=== PATIENT | female | born 1995 | race Caucasian/White ===

== ENCOUNTER 2024-06-18 03:20 | Inpatient (IN) | payer OTHER, SELFPAY ==
[2024-06-18] VITALS (19 sets, daily range): BP systolic 102–207; BP diastolic 52–93; PULSE 58–99; TEMP 35.6–36.8
[2024-06-18] MEDS: LIDOCAINE HCL 1% 200 MG/20 ML MDV INJ (03:42)
[2024-06-18] MEDS: OXYTOCIN/0.9 % SODIUM CHLORIDE 20 UNITS/1,000 ML PLAST..BAG 999 UNIT IV (03:42)
--- NOTE | 2024-06-18 04:07 | PM.OBPRCVD ---
Procedure Intrapartal events: None Induction method: none Delivery monitor: external FHT and external uterine Route of delivery: Episiotomy Description: midline L&D Laceration Description: perineal - 2nd degree Delivery repair: Vicryl Estimated blood loss (mL): 300 Anesthesia type: None Disposition: floor Delivery date: 06/18/24 presentation: vertex Placental delivery description: Spontaneous cord description: 3 Vessels
[2024-06-18] MEDS: GLYCERIN/WITCH HAZEL PADS 1 PAD TOPICAL (04:18)
[2024-06-18] MEDS: BENZOCAINE/MENTHOL 85 GRAM SPRAY BOTTLE 1 APPLIC TOPICAL (04:18)
--- NOTE | 2024-06-18 05:00 | PC.NURSE ---
Mother arrives at 0320 from attempting a home that they became uncomfortable with because the baby wasn't coming. Reports she is post dates and has been in labor since TuesdayJune 16 at noon. They verbalize her due date was June 12. 's head is in wheelchair upon arrival to room 255 in [facility]. She reports her water broke at 0230 am today. They couldn't tell what it looked like because she was in a tub of water. Staff members assisting pt into bed are are Jaspreet Muñoz RN, Natalie Ivey RN, and Feliz Walker CRNA. Nursing baggage handling supervisor KEVIN Granados calls Dr Narvaez to notify him of the need to come [place]. Jaspreet Muñoz remains at pt's side supporting the perineum, Feliz MCCLELLAND places an 20 G IV to left forearm and obtains labs with IV start. pt able to answer questions about plan at this time. Heart tones 170s-180s bpm with moderate variability at this time. 033- Dr Narvaez at bedside. 033- Dr Narvaez cuts a midline episiotomy, infant head delivers and infant body follows. 034- placenta delivers 034- Pitocin started. lidocaine injected to perineum per Dr Narvaez, dr narvaez continues to repair. 035- repair complete.
[2024-06-18 05:25] LABS: Hematocrit 41.5 % (36.0-48.0); Hemoglobin 14.9 g/dL (12.0-16.0); Mean Corpuscular HGB Conc 35.9 g/dL (29.9-35.2); Mean Corpuscular Hemoglobin 31.2 pg (26.7-34.0); Mean Platelet Volume 10.8 fL (9.5-13.5); Platelet Count 235 10^3/uL (150-450); Red Blood Count 4.77 10^6/uL (4.20-5.40); Red Cell Distribution Width 12.4 % (11.0-15.0); White Blood Count 15.8 10^3/uL (4.0-11.0)
[2024-06-19 02:00] VITALS: BP 109/60; PULSE 75; TEMP 36.8
[2024-06-19 02:30] VITALS: BP 109/60; PULSE 75
--- NOTE | 2024-06-19 08:30 | PM.OBPN ---
OB - PN: Subj Subjective Patient comments: no complaints and pain well controlled [place] status: doing well Exam Constitutional Vital Signs, click to edit/add: Last Vital Signs Temp 98.3 F 06/19/24 02:00 Pulse 75 06/19/24 02:30 Resp 16 06/19/24 02:00 BP 109/60 06/19/24 02:30 O2 Del Method Room Air 06/18/24 15:55 Documenting provider has reviewed patient's vital signs: yes Common normals: no apparent distress Respiratory Common normals: normal respiratory effort and clear to auscultation bilaterally Cardio Common normals: regular rate and regular rhythm GI Common normals: Normal to inspection, nondistended, normoactive bowel sounds present Extremity Common normals: no clubbing, cyanosis or edema and no calf tenderness OB - PN: A/P Plan - Vaginal Delivery day: 1 Plan: routine care, discharge home and follow up 6 weeks Time Spent with Patient Time: Total time spent is greater than 50% in coordination of care (as documented) at patient's floor/unit and/or counseling patient: Total time spent with greater than 50% in coordination of care (as documented) at patient's floor/unit and/or counseling patient: less than 15 minutes
[2024-06-19 08:34] VITALS: BP 113/55; PULSE 74
[2024-06-19 08:35] VITALS: TEMP 36.7
== END 2024-06-19 14:10 | disposition home or self-care (01) | DRG 807 ==
PROVIDERS: Admitting Provider Obstetrics & Gynecology; Visit Provider Obstetrics & Gynecology
DX: O70.1 Second degree perineal laceration during delivery (principal); Z37.0 Single live birth; Z3A.40 40 weeks gestation of pregnancy
CPT/HCPCS: 36415; 59050; 59410; 80307; 83036; 85027; 86592; 86762; 86803; 86850; 86900; 86901; 87340; 87389